=== PATIENT | female | born 1985 | race Caucasian/White ===

== ENCOUNTER 2019-12-19 14:24 | Outpatient (CLI) | payer BC, SELFPAY | END 2019-12-19 21:00 | disposition home or self-care (01) | LOC: SLB 14:24 | PROVIDERS: ATTEND Specialist | DX: Z11.59 Encounter for screening for other viral diseases (principal); O09.519 Supervision of elderly primigravida, unspecified trimester; Z3A.00 Weeks of gestation of pregnancy not specified | CPT/HCPCS: C9803; U0003 ==

== ENCOUNTER 2019-12-21 23:35 | Inpatient (IN) | payer BC, SELFPAY ==
[~2019-12-21] VITALS: Ht 160 cm; Wt 94.3 kg
[~2019-12-21 23:35] MED LIST: BUPIVACAINE /PF 0.5% 30 ML VIAL INJ ONE; LR 1,000 ML IV.SOLN IV ONE; MIDAZOLAM HCL 5 MG/5 ML VIAL IVP ONE; NS IRRIG SOLN 1000 ML IR ONE; ePHEDrine sulfate 50 MG/ML VIAL IVP ONE
[2019-12-22] MEDS ORDERED: LR 1,000 ML IV ONE (01:48)
[2019-12-22] MEDS ORDERED: LR 1,000 ML IV SCH ×2 (01:48→20:05)
[2019-12-22] MEDS ORDERED: OXYTOCIN/0.9 % SODIUM CHLORIDE 1,000 ML IV SCH (01:48)
[2019-12-22] MEDS ORDERED: TERBUTALINE SULFATE 1 MG/ML VIAL SUBCUT ONE (02:00)
[2019-12-22] MEDS ORDERED: MORPHINE SULFATE 10 MG/ML VIAL IVP PRN (02:00)
[2019-12-22 02:11] VITALS: BP_SYST 136
[2019-12-22 02:20] VITALS: BP_SYST 130
[2019-12-22 02:41] LABS: BASOPHILS # (AUTO) 0.1 K/uL (0.0-0.2); BASOPHILS % (AUTO) 0.8 % (0.0-2.0); EOSINOPHILS # (AUTO) 0.1 K/uL (0.0-0.4); EOSINOPHILS % (AUTO) 1.4 % (0.0-4.0); HEMATOCRIT 29.9 % (36-48); HEMOGLOBIN 10.1 g/dL (12.0-16.0); LYMPHOCYTES # (AUTO) 1.4 K/uL (1.0-5.5); LYMPHOCYTES % (AUTO) 19.3 % (20.5-51.5); MEAN CORPUSCULAR HEMOGLOBIN 30 pg (27-31); MEAN CORPUSCULAR HGB CONC 34 % (32-36); MEAN CORPUSCULAR VOLUME 88 fL (79.0-98.0); MONOCYTES # (AUTO) 0.4 K/uL (0.0-1.0); MONOCYTES % (AUTO) 5.3 % (1.7-9.3); NEUTROPHILS # (AUTO) 5.4 K/uL (1.8-7.7); NEUTROPHILS % (AUTO) 73.2 % (40.0-70.0); PLATELET COUNT (AUTO) 263 K/uL (130-430); RED CELL DISTRIBUTION WIDTH 13.9 % (9.0-15.0); WHITE BLOOD COUNT (AUTO) 7.4 K/uL (4.8-10.8)
[2019-12-22] MEDS ORDERED: ONDANSETRON HCL 4 MG/2 ML VIAL IVP PRN ×2 (03:30→18:45)
[2019-12-22] MEDS ORDERED: ROPIVACAINE HCL/PF 0.2% 200 ML ONE (09:05)
[2019-12-22] MEDS ORDERED: fentaNYL CITRATE/PF 100 MCG/2 ML AMP ONE (09:05)
[2019-12-22] MEDS ORDERED: LR 500 ML IV ONE (09:40)
[2019-12-22] MEDS ORDERED: FENT2mCg/mL-ROPIVA0.2%/NS EPID 200 ML EP SCH (09:45)
[2019-12-22] MEDS ORDERED: CEFAZOLIN 2 GM IVPB PREMIX 50 ML IV ONE (17:45)
[2019-12-22] MEDS ORDERED: METHYLERGONOVINE MALEATE 0.2 MG/ML AMP ONE (18:28)
[2019-12-22] MEDS ORDERED: DIPHENHYDRAMINE INJ 50 MG/ML VIAL IVP PRN (18:45)
[2019-12-22] MEDS ORDERED: fentaNYL CITRATE/PF 100 MCG/2 ML AMP IVP PRN ×2 (18:45)
[2019-12-22] MEDS ORDERED: MORPHINE SULFATE 10MG/10ML PF AMP EP SCH (18:45)
[2019-12-22] MEDS ORDERED: NALBUPHINE HCL 10 MG/ML AMP IVP PRN (18:45)
[2019-12-22] MEDS ORDERED: KETOROLAC TROMETHAMINE 60 MG/2 ML VIAL IM PRN (18:45)
[2019-12-22] MEDS ORDERED: NALOXONE HCL 0.4 MG/ML AMP (NARCAN) IVP PRN ×3 (18:45→20:15)
[2019-12-22] MEDS ORDERED: RHO(D) IMMUNE GLOBULIN/MALTOSE 1500 UNITS/1.3 ML (WINHRO) IM PRN (20:15)
[2019-12-22] MEDS ORDERED: HYDROcodone/ACETAMIN 5-325 MG TAB (NORCO/ VICODIN) PO PRN (20:15)
[2019-12-22] MEDS ORDERED: TEMAZEPAM 15 MG CAPSULE PO PRN (20:15)
[2019-12-22] MEDS ORDERED: BISACODYL 10 MG/SUPPOSITORY RC PRN (20:15)
[2019-12-22] MEDS ORDERED: LANOLIN 7 GM OINT. TP PRN (20:15)
[2019-12-22] MEDS ORDERED: MEASLES,MUMPS&RUBELLA VACC/PF 12500 UNIT/0.5 ML VIAL SUBQ PRN (20:15)
[2019-12-22] MEDS ORDERED: OXYCODONE/ACETAMINOPHEN *10*mg/325 mg TABLET PO PRN (20:15)
[2019-12-22] MEDS ORDERED: OXYCODONE/ACETAMINOPHEN 5-325 TABLET PO PRN (20:15)
[2019-12-22] MEDS ORDERED: ANUSOL 1 EA SUPP.RECT (PREPARATION H) RC PRN (20:15)
[2019-12-22] MEDS ORDERED: SENNOSIDES/DOCUSATE SODIUM 1 TAB TABLET(SENOKOT-S) PO PRN (20:15)
[2019-12-22] MEDS ORDERED: DIPH-TET-PERTUS Vaccine 0.5 ML VIAL (ADACEL) I.M. PRN (20:15)
[2019-12-22 20:21] VITALS: BP_SYST 127
[2019-12-22] MEDS ORDERED: OXYTOCIN/0.9 % SODIUM CHLORIDE 1,000 ML IV ONE (20:42)
[2019-12-23] MEDS: CEFAZOLIN 1 GM IVPB PREMIX 50 ML IV SCH ×3 (00:02→12:17)
[2019-12-23] MEDS: KETOROLAC TROMETHAMINE 30 MG VIAL IVP SCH ×4 (00:02→18:07)
[2019-12-23] MEDS: OXYTOCIN/0.9 % SODIUM CHLORIDE 1,000 ML IV SCH ×2 (06:08→14:03)
[2019-12-23 08:32] LABS: BASOPHILS % (AUTO) 0.2 % (0.0-2.0); EOSINOPHILS % (AUTO) 0.1 % (0.0-4.0); LYMPHOCYTES # (AUTO) 1.6 K/uL (1.0-5.5); LYMPHOCYTES % (AUTO) 11.8 % (20.5-51.5); MEAN CORPUSCULAR HEMOGLOBIN 29 pg (27-31); MEAN CORPUSCULAR HGB CONC 33 % (32-36); MEAN CORPUSCULAR VOLUME 89 fL (79.0-98.0); MONOCYTES # (AUTO) 0.8 K/uL (0.0-1.0); MONOCYTES % (AUTO) 6.1 % (1.7-9.3); NEUTROPHILS # (AUTO) 11.4 K/uL (1.8-7.7); NEUTROPHILS % (AUTO) 81.8 % (40.0-70.0); PLATELET COUNT (AUTO) 236 K/uL (130-430); RED CELL DISTRIBUTION WIDTH 14.3 % (9.0-15.0); WHITE BLOOD COUNT (AUTO) 13.9 K/uL (4.8-10.8)
[2019-12-23 08:44] LABS: HEMATOCRIT 20.4 % (36-48); HEMOGLOBIN 6.7 g/dL (12.0-16.0)
[2019-12-23] MEDS ORDERED: FERROUS SULFATE 325 MG TABLET.DR PO ONE (12:15)
[2019-12-23] MEDS: SIMETHICONE 80 MG TAB.CHEW PO PRN ×2 (12:18→18:05)
[2019-12-23] MEDS: DOCUSATE SODIUM 100 MG CAPSULE PO PRN (18:05)
[2019-12-23] MEDS: FERROUS SULFATE 325 MG TABLET.DR PO SCH (22:09)
[2019-12-23] MEDS: IBUPROFEN 600 MG TABLET PO SCH (23:48)
[2019-12-24] MEDS: IBUPROFEN 600 MG TABLET PO SCH ×2 (06:14→12:47)
[2019-12-24] MEDS: DOCUSATE SODIUM 100 MG CAPSULE PO PRN (06:14)
[2019-12-24] MEDS: FERROUS SULFATE 325 MG TABLET.DR PO SCH (09:32)
[2019-12-24] MEDS: SIMETHICONE 80 MG TAB.CHEW PO PRN (12:47)
== END 2019-12-24 17:39 | disposition home or self-care (01) | DRG 788 ==
LOC: SPU 23:35
PROVIDERS: ADMIT Specialist; ATTEND Specialist
PROC: 10D00Z1 Extraction of Products of Conception, Low, Open Approach (ICD-10-PCS; principal; 2019-12-22 19:45)
DX: O33.9 Maternal care for disproportion, unspecified (principal); O99.89 Other specified diseases and conditions complicating pregnancy, childbirth and the puerperium; N73.6 Female pelvic peritoneal adhesions (postinfective); N80.1 Endometriosis of ovary; O62.2 Other uterine inertia; Z3A.39 39 weeks gestation of pregnancy; Z37.0 Single live birth
CPT/HCPCS: 36415; 81002-TC; 85025; 86592; 86780; 86870; 86886; 86900; 86901; 94760; A4618; J0690; J1885; J2210; J2250; J2270; J2405; J2590; J3010; J3490; J7120